=== PATIENT | male | born 1980 | race Caucasian/White ===

== ENCOUNTER 2016-03-29 19:48 | Emergency (ER) | payer OTHER ==
[2016-03-29 20:06] VITALS: BP 115/73
--- NOTE | 2016-03-29 21:06 | UC ---
General HPI - HPI Summary HPI Summary: 35 yo male fell on stairs about 5 days ago Initially had moderate to severe back pain but he was still able to work Since then every AM he wakes up and has arm and leg weakness (things feel floppy ) drops things and can't pull up pants open milk container etc. Later has numbness then things start to feel better and he strength return No headache No neck pain No back pain - History of Current Complaint Chief Complaint: UCUpperExtremity Stated Complaint: NUMBNESS IN BOTH ARMS Time Seen by Provider: 03/29/16 20:43 Hx Obtained From: Patient Onset/Duration: Sudden Onset, Lasting Days Timing: Intermittent Episodes Lasting: - hours Onset Severity: Moderate Current Severity: Mild Pain Intensity: 2 Pain Location at: paresthesias arms and legs Character: pins and needles Aggravating: worse on arising Associated Signs & Symptoms: Positive: Weakness - in AM. Negative: Agitation, Abdominal Pain, Anticoagulation Therapy, Back Pain, Confusion, Cough, Chest Pain , Decreased Responsiveness, Dizziness, Diarrhea, Dysuria, Decreased Oral Intake , Diaphoresis, Edema, Fever, Headache, Hematemesis, Hemoptysis, Immunocompromised, In-Dwelling Medication Device, Melena, Nausea, Palpitations, Recent Medication Changes, Syncope, SOB, Trauma, Vomiting, Wheezing - Allergy/Home Medications Allergies/Adverse Reactions: Allergies Allergy/AdvReac Type Severity Reaction Status Date / Time Bupropion Allergy Intermediate Hives Verified 03/29/16 20:06 PMH/Surg Hx/FS Hx/Imm Hx Previously Healthy: Yes Endocrine History Of: Denies: Diabetes, Thyroid Disease Cardiovascular History Of: Denies: Cardiac Disorders, Hypertension Respiratory History Of: Reports: Asthma - as asthma Denies: COPD GI/ History Of: Denies: Ulcer - Surgical History Surgical History: Yes Surgery Procedure, Year, and Place: intestinal sx as an infant - Family History Known Family History: Positive: Cardiac Disease - Social History Alcohol Use: Rare Substance Use Type: None Smoking Status (MU): Heavy Every Day Tobacco Smoker Type: Cigarettes Amount Used/How Often: 1/2 ppd Length of Time of Smoking/Using Tobacco: 18 YRS Have You Smoked in the Last Year: Yes - Immunization History Most Recent Influenza Vaccination: none Review of Systems Constitutional: Negative Skin: Negative Eyes: Negative ENT: Negative Respiratory: Negative Cardiovascular: Negative Gastrointestinal: Negative Genitourinary: Negative Motor: Negative Neurovascular: Negative Musculoskeletal: Negative Neurological: Weakness, Paresthesia, Numbness Psychological: Negative All Other Systems Reviewed And Are Negative: Yes Physical Exam Triage Information Reviewed: Yes Appearance: Well-Appearing, No Pain Distress, Well-Nourished Vital Signs: Initial Vital Signs Temp 98.8 F 03/29/16 19:58 Pulse 96 03/29/16 19:58 Resp 17 03/29/16 19:58 BP 115/73 03/29/16 19:58 Pulse Ox 98 03/29/16 19:58 Vital Signs Reviewed: Yes Eyes: Positive: Conjunctiva Clear, Other: - eomi/perrl ENT: Positive: Hearing grossly normal. Negative: Nasal congestion, Nasal drainage, TMs normal, Tonsillar exudate, Trismus, Muffled/hoarse voice Neck: Positive: Supple, Nontender, No Lymphadenopathy, Other:. Negative: Nuchal Rigidity, Tenderness @, Enlarged Nodes @ Respiratory: Positive: Lungs clear, Normal breath sounds, No respiratory distress, No accessory muscle use Cardiovascular: Positive: RRR, No Murmur Musculoskeletal: Positive: Strength Intact, ROM Intact, No Edema Neurological Exam: Normal Neurological: Positive: Alert, Muscle Tone Normal, Other: - normal gait, strength 5/5, sensation intact. dtrs symmetric, great toes down going, cn 2-12 intact, GCS 15/15. Negative: Fatigued, Lethargic, Unresponsive, Abnormal Muscle Tone Psychological Exam: Normal Skin Exam: Normal Course/Dx - Course Course Of Treatment: CS (-) - Differential Dx - Multi-Symptom Provider Diagnoses: paresthesias/weakness (in AMs) x 4 days. ? cause Discharge - Discharge Plan Condition: Stable Disposition: HOME Patient Education Materials: Paresthesia (ED) Forms: *Work Release Referrals: Natalia Sahni PA [Primary Care Provider] - As Soon As Possible Additional Instructions: I am unsure of the cause of your AM numbness and weakness Your xrays where normal You need further investigation of these symptoms
--- NOTE | 2016-03-29 21:43 | RAD ---
Indication: Bilateral arm and leg paresthesias and weakness post fall one day prior. Comparison: None. Technique: AP, open-mouth odontoid, lateral, and oblique views cervical spine. Report: Normal alignment from the craniocervical junction through the cervicothoracic junction. Preserved disc spaces. Negative for fracture. Negative for osseous foraminal stenosis on the oblique views. Negative for prevertebral soft tissue thickening. IMPRESSION: No evidence for traumatic cervical spine injury. Negative exam.
== END 2016-03-29 22:00 | disposition home or self-care (01) ==
LOC: UCCORT 19:48
DX: R53.1 Weakness (principal); R20.2 Paresthesia of skin; J45.909 Unspecified asthma, uncomplicated; F17.210 Nicotine dependence, cigarettes, uncomplicated
CPT/HCPCS: 72050; 93005; 99211; G0463

== ENCOUNTER 2016-05-19 09:02 | Emergency (ER) | payer SELFPAY ==
--- NOTE | 2016-05-19 09:12 | UC ---
UC General HPI - HPI Summary HPI Summary: Left arm pain and weakness today when he lifted something heavy at work, that was associated with chest pain, that has now resolved. Pt states he has had the left arm pain for about a week. Also has a left sided headache for about a week. Pt states he took an excedrin that contains ASA this am about an hour ago. - History of Current Complaint Stated Complaint: HEADACHES,LEFT ARM PAIN & WEAKNESS Time Seen by Provider: 05/19/16 09:04 Hx Obtained From: Patient Onset/Duration: Gradual Onset, Lasting Weeks - 1, Still Present Timing: Constant Onset Severity: Moderate Current Severity: Moderate Pain Intensity: 3 - right now it is 5, 9 a half hour ago with lifting Pain Radiates to: left shoulder Character: "constant" dull Aggravating: lifting, repetitive movements Associated Signs & Symptoms: Positive: Headache - dull, steady, unrelieved by Tylenol, like a "sinus HER", Weakness - left arm when tries to lift. Negative: Chest Pain Related Hx: Recent Illness - was in [facility] after sent from here, had what sounds like nuclear stress test. Pt states it was "OK". "They injected the dye through my arm, done at [facility]". - Allergy/Home Medications Allergies/Adverse Reactions: Allergies Allergy/AdvReac Type Severity Reaction Status Date / Time Bupropion Allergy Intermediate Hives Verified 05/19/16 09:12 PMH/Surg Hx/FS Hx/Imm Hx Endocrine History Of: Denies: Diabetes, Thyroid Disease Cardiovascular History Of: Denies: Cardiac Disorders, Hypertension Respiratory History Of: Reports: Asthma - as asthma Denies: COPD GI/ History Of: Denies: Ulcer - Surgical History Surgical History: Yes Surgery Procedure, Year, and Place: intestinal sx as an - Family History Known Family History: Positive: Cardiac Disease - mother of sudden [place] in her 50's - Social History Occupation: Employed Full-time Alcohol Use: Rare Substance Use Type: None Smoking Status (MU): Heavy Every Day Tobacco Smoker Type: Cigarettes Amount Used/How Often: 1/2 ppd Length of Time of Smoking/Using Tobacco: 18 YRS Have You Smoked in the Last Year: Yes - Immunization History Most Recent Influenza Vaccination: none Review of Systems Constitutional: Negative Skin: Negative Eyes: Negative ENT: Negative Respiratory: Cough Cardiovascular: Chest Pain - "for a minute when he was lifting at work, and then it was gone" Gastrointestinal: Negative Genitourinary: Negative Motor: Negative Neurovascular: Negative Musculoskeletal: Negative Neurological: Headache, Weakness - left arm with lifting Psychological: Negative All Other Systems Reviewed And Are Negative: Yes Physical Exam Triage Information Reviewed: Yes Appearance: Well-Appearing, Well-Nourished, Pain Distress Vital Signs Reviewed: Yes Eyes: Positive: Conjunctiva Clear Neck: Positive: Supple, Nontender, No Lymphadenopathy Respiratory: Positive: Chest non-tender, Lungs clear, Normal breath sounds, No respiratory distress Cardiovascular: Positive: RRR, No Murmur, Pulses Normal, Brisk Capillary Refill Musculoskeletal: Positive: Strength Intact, ROM Intact Neurological: Positive: Alert, Muscle Tone Normal Psychological Exam: Normal Skin Exam: Normal Course/Dx - Course Course Of Treatment: Because of the chest pain with exertion with left arm pain and weakness and pt's risk fxs of mother's early from CAD and his smoking , will send pt to [facility] for further eval. Pt took excedrin with ASA this am, so will not give more. Pt signs AMA for ambulance. - Differential Dx - Multi-Symptom Differential Diagnoses: Cardiac Ischemia Provider Diagnoses: chest pain. left arm pain and weakness. headache Discharge - Discharge Plan Condition: Stable Disposition: AGAINST MEDICAL ADVICE Referrals: Natalia Sahni PA [Primary Care Provider] -
[2016-05-19 09:18] VITALS: BP 115/74
== END 2016-05-19 09:35 | disposition left against medical advice (07) ==
LOC: UCCORT 09:02
DX: R07.89 Other chest pain (principal); M79.602 Pain in left arm; R53.1 Weakness; R51 Headache; F17.210 Nicotine dependence, cigarettes, uncomplicated
CPT/HCPCS: 93005; 99212; G0463

== ENCOUNTER 2016-11-26 20:47 | Emergency (ER) | payer OTHER ==
[2016-11-26] MEDS ORDERED: Fluorescein Sodium TOPICAL* 1 MG TEST OPHTHALMIC ONE (20:54)
[2016-11-26] MEDS ORDERED: BSS OPTH.SOL* BTL OPHTHALMIC ONE ×2 (20:55→21:40)
[2016-11-26] MEDS ORDERED: Tetracaine 0.5% OPTH.SOL 4 ML* 1 DROP BTL LEFT EYE ONE (20:55)
[2016-11-26 21:17] VITALS: BP 129/83
[2016-11-26] MEDS ORDERED: Erythromycin OPTH OINT* APPLIC OINT LEFT EYE ONE (21:25)
[2016-11-26] MEDS ORDERED: Erythromycin OPTH OINT* APPLIC OINT ONE (21:27)
[2016-11-26] MEDS ORDERED: BSS OPTH.SOL* BTL ONE (21:41)
[2016-11-26] MEDS ORDERED: Ciprofloxacin 0.3% OPTH.SOL* 2.5 ML BTL LEFT EYE ONE (21:56)
[2016-11-26] MEDS ORDERED: HYDROcodone/ACETAMIN 5-325 MG* 1 TAB PO ONE (21:57)
--- NOTE | 2016-12-11 17:35 | UC ---
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 - History of Current Complaint Chief Complaint: UCEye Stated Complaint: LEFT EYE COMPLAINT Time Seen by Provider: 11/26/16 20:50 Hx Obtained From: Family/Meat Pumper Onset/Duration: Sudden Onset, Lasting Days - 1 Timing: Constant Severity Initially: Mild Severity Currently: Severe Pain Intensity: 10 Pain Scale Used: 0-10 Numeric Location of Injury: Conjunctiva Character: Foreign Body Sensation Aggravating Factor(s): Nothing Alleviating Factor(s): Nothing Associated Signs And Symptoms: Positive: Drainage (Clear) Related History: Foreign Body - Allergies/Home Medications Allergies/Adverse Reactions: Allergies Allergy/AdvReac Type Severity Reaction Status Date / Time Bupropion Allergy Intermediate Hives Verified 11/26/16 21:09 PMH/Surg Hx/FS Hx/Imm Hx Previously Healthy: No GI/ History: Gastroesophageal Reflux - Surgical History Surgical History: Yes Surgery Procedure, Year, and Place: intestinal sx as an infant, vasectomy - Family History Known Family History: Positive: Cardiac Disease - mother of sudden [place] in her 50's - Social History Occupation: Employed Full-time Lives: With Family Alcohol Use: Occasionally Substance Use Type: None Smoking Status (MU): Heavy Every Day Tobacco Smoker Type: Cigarettes Amount Used/How Often: 3/4 PPD Length of Time of Smoking/Using Tobacco: 18 YRS Have You Smoked in the Last Year: Yes - Immunization History Most Recent Influenza Vaccination: none Most Recent Tetanus Shot: 1 yr ago Review of Systems Constitutional: Negative Skin: Negative Eyes: Blurred Vision - os, Eye Redness ENT: Negative Respiratory: Negative Cardiovascular: Negative Gastrointestinal: Negative Genitourinary: Negative Motor: Negative Neurovascular: Negative Musculoskeletal: Negative Neurological: Negative Psychological: Negative Is Patient Immunocompromised?: No All Other Systems Reviewed And Are Negative: Yes Physical Exam Triage Information Reviewed: Yes Appearance: Well-Appearing, No Pain Distress, Well-Nourished Vital Signs: Initial Vital Signs Temp 98.8 F 11/26/16 21:10 Pulse 94 11/26/16 21:10 Resp 16 11/26/16 21:10 BP 129/83 11/26/16 21:10 Pulse Ox 99 11/26/16 21:10 Vital Signs Reviewed: Yes Eye Exam: Normal Eyes: Positive: Conjunctiva Inflamed, Discharge, Other: - FB at 3pm on cornea ENT Exam: Normal ENT: Positive: Normal ENT inspection, Hearing grossly normal, TMs normal. Negative: Nasal congestion, Nasal drainage, Trismus, Muffled/hoarse voice Dental Exam: Normal Neck exam: Normal Neck: Positive: Supple, Nontender Respiratory Exam: Normal Respiratory: Positive: Chest non-tender, Lungs clear, Normal breath sounds, No respiratory distress, No accessory muscle use Cardiovascular Exam: Normal Cardiovascular: Positive: RRR, No Murmur, Pulses Normal, Brisk Capillary Refill Musculoskeletal Exam: Normal Musculoskeletal: Positive: Strength Intact, ROM Intact Neurological Exam: Normal Neurological: Positive: Alert, Muscle Tone Normal Psychological Exam: Normal Skin Exam: Normal Re-Evaluation - Re-Evaluation First Eval Change: Improved - FB removed with copious flush and felicia lens, cotton swab and 25 guage needle--patient tolerated well Eye Complaint Course/Dx - Course Course Of Treatment: eye drops pain med follow with optho is symptoms worsen in any way or fail to improve - Differential Dx/Diagnosis Differential Diagnosis/HQI/PQRI: Conjunctivitis, Foreign Body, Periorbital Cellulitis, Orbital Cellulitis Provider Diagnoses: FB removed OS Discharge - Discharge Plan Condition: Stable Disposition: HOME Patient Education Materials: How to Use Eye Drops (ED), Eye Foreign Body (ED) Referrals: Manju Bray MD [Medical Doctor] - 11/30/16 Additional Instructions: Return to urgent care or go to ED for emergent issues over the weekend if you are unable to contact eye doctor
== END 2016-11-26 22:24 | disposition home or self-care (01) ==
LOC: UCCORT 20:47
DX: T15.12XA Foreign body in conjunctival sac, left eye, initial encounter (principal); X58.XXXA Exposure to other specified factors, initial encounter; Y93.89 Activity, other specified; Y92.9 Unspecified place or not applicable; K21.9 Gastro-esophageal reflux disease without esophagitis; F17.210 Nicotine dependence, cigarettes, uncomplicated
CPT/HCPCS: 65205; 99213; A9270-GY; G0463

== ENCOUNTER 2017-07-13 10:53 | Emergency (ER) | payer OTHER ==
[2017-07-13 11:25] VITALS: BP 117/75
--- NOTE | 2017-07-13 12:11 | UC ---
Respiratory Complaint HPI - HPI Summary HPI Summary: Patient chief complaint of cough beginning on Tuesday 3 days ago and then body aches chills headache began 2 days ago. Patient denies fever, 2 children minutes home have similar symptoms - History of Current Complaint Chief Complaint: UCGeneralIllness Stated Complaint: HEADACHE, COUGH Time Seen by Provider: 07/13/17 11:59 Hx Obtained From: Patient Onset/Duration: Sudden Onset, Lasting Days - 3 a Timing: Constant Severity Initially: Mild Severity Currently: Mild Pain Intensity: 0 Pain Scale Used: 0-10 Numeric Character: Cough: Nonproductive Aggravating Factors: Allergens Alleviating Factors: OTC Meds Associated Signs And Symptoms: Positive: Negative, URI - Allergies/Home Medications Allergies/Adverse Reactions: Allergies Allergy/AdvReac Type Severity Reaction Status Date / Time bupropion Allergy Hives Verified 07/13/17 11:26 Home Medications: Home Medications Ergocalciferol (Vitamin D2) [Vitamin D2] 2,000 unit PO DAILY 07/13/17 [History Confirmed 07/13/17] Simvastatin [Zocor] 20 mg PO DAILY 07/13/17 [History Confirmed 07/13/17] Zolpidem TAB* [Ambien TAB*] 10 mg PO BEDTIME 07/13/17 [History Confirmed ] PMH/Surg Hx/FS Hx/Imm Hx Previously Healthy: Yes Endocrine History: Dyslipidemia GI/ History: Gastroesophageal Reflux - She is Psychological History: Other Other Psychological History: insomnia - Surgical History Surgical History: Yes Surgery Procedure, Year, and Place: intestinal sx as an infant, vasectomy - Family History Known Family History: Positive: Cardiac Disease - mother of sudden [place] in her 50's - Social History Occupation: Employed Full-time Lives: With Family Alcohol Use: Occasionally Substance Use Type: None Smoking Status (MU): Heavy Every Day Tobacco Smoker Type: Cigarettes Amount Used/How Often: 3/4 PPD Length of Time of Smoking/Using Tobacco: 18 YRS Have You Smoked in the Last Year: Yes - Immunization History Most Recent Influenza Vaccination: none Most Recent Tetanus Shot: 1 yr ago Review of Systems Constitutional: Negative Skin: Negative Eyes: Negative ENT: Nasal Discharge Respiratory: Cough Cardiovascular: Negative Gastrointestinal: Negative Genitourinary: Negative Motor: Negative Neurovascular: Negative Musculoskeletal: Arthralgia, Myalgia Neurological: Headache Psychological: Negative Is Patient Immunocompromised?: No All Other Systems Reviewed And Are Negative: Yes Physical Exam Triage Information Reviewed: Yes Appearance: No Pain Distress, Well-Nourished, Ill-Appearing - mild Vital Signs: Initial Vital Signs Temp 98.2 F 07/13/17 11:20 Pulse 95 07/13/17 11:20 Resp 17 07/13/17 11:20 BP 117/75 07/13/17 11:20 Pulse Ox 97 07/13/17 11:20 Vital Signs Reviewed: Yes Eye Exam: Normal Eyes: Positive: Conjunctiva Clear ENT Exam: Normal ENT: Positive: Normal ENT inspection, Hearing grossly normal, Pharynx normal, TMs normal. Negative: Nasal congestion - 55, Tonsillar swelling, Tonsillar exudate, Trismus, Muffled voice, Hoarse voice, Dental tenderness, Sinus tenderness, Uvula midline Neck exam: Normal Neck: Positive: Supple, Nontender, No Lymphadenopathy Respiratory Exam: Normal Respiratory: Positive: Chest non-tender, Lungs clear, Normal breath sounds, No respiratory distress, No accessory muscle use Cardiovascular Exam: Normal Cardiovascular: Positive: RRR, No Murmur, Pulses Normal, Brisk Capillary Refill Musculoskeletal Exam: Normal Musculoskeletal: Positive: Strength Intact, ROM Intact, No Edema Neurological Exam: Normal Neurological: Positive: Alert, Muscle Tone Normal Psychological Exam: Normal Skin Exam: Normal UC Diagnostic Evaluation - Laboratory O2 Sat by Pulse Oximetry: 97 Diagnostic Studies Comment: Influenza A/B (-) Respiratory Course/Dx - Course Course Of Treatment: Home rest increase fluids nicotine cessation information [id number] medications for symptom relief and control off work Tuesday today and tomorrow - Differential Dx/Diagnosis Provider Diagnoses: Viral upper respiratory infection, nicotine dependence Discharge - Sign-Out/Discharge Documenting (check all that apply): Discharge - Discharge Plan Condition: Stable Disposition: HOME Patient Education Materials: How to Stop Smoking (ED), Upper Respiratory Infection (ED), Viral Syndrome (ED) Forms: *Work Release Referrals: Natalia Sahni PA [Primary Care Provider] - If Needed - Billing Disposition and Condition Condition: STABLE Disposition: HOME
== END 2017-07-13 12:40 | disposition home or self-care (01) ==
LOC: UCCORT 10:53
DX: J06.9 Acute upper respiratory infection, unspecified (principal); F17.210 Nicotine dependence, cigarettes, uncomplicated
CPT/HCPCS: 87502; 99211; G0463